=== PATIENT | female | born 1970 | race Caucasian/White ===

== ENCOUNTER 2018-07-23 17:29 | Emergency (ER) | payer OTHER ==
[~2018-07-23] VITALS: Ht 157.5 cm; Wt 96.6 kg
[~2018-07-23 17:29] MED LIST: METF500T PO; MIC5 PO
[2018-07-23 17:40] VITALS: BP 114/72
--- NOTE | 2018-07-23 17:49 | NUR ---
PT AMBULATED TO BED 07.
--- NOTE | 2018-07-23 18:10 | NUR ---
C/O LOWER BACK PAIN 8/10 SHARP, LOWER ABD PAIN X2 WEEKS. DENIES DYSURIA, FREQUENCY, VOMITING, DIARRHEA, FEVER. BOWEL SOUNDS ACITVE X4, ABD. SOFT, FLAT AND TENDER TO PALPATION ON LRQ/URQ. LBM 07/23/18 - PER PT, BM NORMAL. PT ALERT AND ANSWERING QUESTIONS APPROPRIATLELY.
--- NOTE | 2018-07-23 18:10 | NUR ---
ERMD AT BEDSIDE
[2018-07-23] MEDS ORDERED: KETOROLAC 30 MG/ML VIAL IM ONE (18:15)
[2018-07-23 19:26] VITALS: BP 118/80
--- NOTE | 2018-07-23 19:26 | NUR ---
Patient discharged with v/s stable. Written and verbal after care instructions given and explained. Patient alert, oriented and verbalized understanding of instructions. Ambulatory with steady gait. All questions addressed prior to discharge. ID band removed. Patient advised to follow up with PMD. Rx of VOLTAREN, MIRALAX, IBUPROFEN given. Patient educated on indication of medication including possible reaction and side effects. Opportunity to ask questions provided and answered.
== END 2018-07-23 19:26 | disposition home or self-care (01) ==
LOC: MED 17:29
DX: S39.012A Strain of muscle, fascia and tendon of lower back, initial encounter (principal); E11.9 Type 2 diabetes mellitus without complications; I10 Essential (primary) hypertension; Z90.49 Acquired absence of other specified parts of digestive tract; Z90.710 Acquired absence of both cervix and uterus; Z79.84 Long term (current) use of oral hypoglycemic drugs; Z79.899 Other long term (current) drug therapy; X50.0XXA Overexertion from strenuous movement or load, initial encounter; Y93.89 Activity, other specified; Y92.89 Other specified places as the place of occurrence of the external cause; Y99.8 Other external cause status
CPT/HCPCS: 74018; 81002; 81025; 96372; 99283; J1885

== ENCOUNTER 2018-11-26 21:51 | Emergency (ER) | payer OTHER ==
[~2018-11-26] VITALS: Ht 157.5 cm; Wt 123.1 kg
[2018-11-26 22:20] VITALS: BP 147/72
[2018-11-26] MEDS: ASPIRIN 81 MG TAB.CHEW PO ONE (22:47)
[2018-11-26 22:58] LABS: BASOPHILS # (AUTO) 0.1 K/uL (0.00-0.22); BASOPHILS % (AUTO) 0.5 % (0.0-2.0); EOSINOPHILS # (AUTO) 0.1 K/uL (0-0.4); EOSINOPHILS % (AUTO) 0.8 % (0.0-4.0); HEMATOCRIT 39.6 % (36-48); HEMOGLOBIN 12.6 g/dL (12.0-16.0); LYMPHOCYTES # (AUTO) 3.2 K/uL (2.5-16.5); LYMPHOCYTES % (AUTO) 22.8 % (20.5-51.1); MEAN CORPUSCULAR HEMOGLOBIN 25 pg (27-31); MEAN CORPUSCULAR HGB CONC 32 g/dL (33-37); MEAN CORPUSCULAR VOLUME 77.9 fL (80-94); MONOCYTES # (AUTO) 1.1 K/uL (0.8-1.0); MONOCYTES % (AUTO) 7.8 % (1.7-9.3); NEUTROPHILS # (AUTO) 9.4 K/uL (1.8-7.7); NEUTROPHILS % (AUTO) 68.1 % (42.2-75.2); PLATELET COUNT (AUTO) 350 K/uL (140-450); RED BLOOD CELL COUNT(AUTO) 5.08 MIL/uL (4.20-5.40); WHITE BLOOD COUNT (AUTO) 13.9 K/uL (4.8-10.8)
[2018-11-26 23:08] LABS: ANION GAP 16.8 (8-16); CARBON DIOXIDE 22.8 mmol/L (21-32); CREATININE 1.4 mg/dL (0.6-1.3); POTASSIUM 3.6 mmol/L (3.5-5.1)
[2018-11-26 23:14] LABS: ALBUMIN 3.2 g/dL (3.4-5.0); TOTAL BILIRUBIN 0.3 mg/dL (0.0-1.0)
[2018-11-26] MEDS: NACL 0.9% 1,000 ML IV ONE (23:19)
[2018-11-26] MEDS: KETOROLAC 30 MG/ML VIAL IVP ONE (23:20)
[2018-11-27 00:41] VITALS: BP 130/69
== END 2018-11-27 00:40 | disposition home or self-care (01) ==
LOC: MED 21:51
DX: R07.89 Other chest pain (principal); R11.0 Nausea; R42 Dizziness and giddiness; E11.9 Type 2 diabetes mellitus without complications; I10 Essential (primary) hypertension; Z90.49 Acquired absence of other specified parts of digestive tract; Z98.890 Other specified postprocedural states; Z79.84 Long term (current) use of oral hypoglycemic drugs; Z79.899 Other long term (current) drug therapy
CPT/HCPCS: 36415; 71045; 80053; 82948; 84484; 85025; 93005; 96361; 96374; 99284; J1885; J7030; Q0092

== ENCOUNTER 2020-08-06 06:31 | Emergency (ER) | payer OTHER ==
[~2020-08-06] VITALS: Ht 162.6 cm; Wt 135.2 kg
[~2020-08-06 06:31] MED LIST changes: +GLYB-200 PO; -MIC5 PO
[2020-08-06 06:39] VITALS: BP 94/57
--- NOTE | 2020-08-06 06:47 | NUR ---
PATIENT AMBUALTED TO RESTROOM TO PROVIDE URINE SAMPLE.
--- NOTE | 2020-08-06 06:50 | NUR ---
PATIENT STATES UNABLE TO PROVIDE UA SAMPLE AT THIS TIME. PATIENT AMBUALTED TO BED 7 WITH STEADY GAIT.
--- NOTE | 2020-08-06 06:52 | NUR ---
49 YO/F BIB self w C/O diarrhea and fatigue x3 days. Patient reports having multiple bowel movements a day, denies blood in bowel movements. Patient denies LOC. Patient AOx4. Patient also reports LUQ pressure like abdominal pain that comes and goes at random time and lasts approximately 10 minutes at a time x3 days. Denies any pain at the moment. Bowel sounds present through out all quadrants. Patient reports she has tried drinking electrolytes, and eating rice but has not helped with symptoms. Patient denies n/v, or fever. Patient laying in bed, locked in lowest position, HOB elevated, x1 siderail up. NAD noted at this time. PMH: Gallbladder removal, Diabetes, HTN NKA
--- NOTE | 2020-08-06 07:10 | NUR ---
Report given to DIONNE Roberto for transfer of care.
--- NOTE | 2020-08-06 07:19 | NUR ---
ERMD at bedside assessing patient.
[2020-08-06] MEDS ORDERED: LOPE-289 PO (07:27)
[2020-08-06] MEDS ORDERED: CIPR500T4 PO (07:27)
[2020-08-06] MEDS ORDERED: IBUP-2213 PO (07:27)
[2020-08-06 07:35] VITALS: BP 94/57
--- NOTE | 2020-08-06 07:35 | NUR ---
Patient discharged with v/s stable. Written and verbal after care instructions given and explained. Patient alert, oriented and verbalized understanding of instructions. Ambulatory with steady gait. All questions addressed prior to discharge. ID band removed. Patient advised to follow up with PMD. Rx of Cirpofloxacin, Ibuprofen caroline Imodium given. Patient educated on indication of medication including possible reaction and side effects. Opportunity to ask questions provided and answered.
== END 2020-08-06 07:34 | disposition home or self-care (01) ==
LOC: MED 06:31
DX: R19.7 Diarrhea, unspecified (principal); E11.9 Type 2 diabetes mellitus without complications; I10 Essential (primary) hypertension
CPT/HCPCS: 99283